=== PATIENT | female | born 1975 | race Caucasian/White ===

== ENCOUNTER 2020-12-01 08:43 | Emergency (ER) | payer SELFPAY ==
[~2020-12-01] VITALS: Ht 162.6 cm; Wt 77.0 kg
[2020-12-01 08:56] VITALS: BP 140/88
[2020-12-01] MEDS ORDERED: ACETAMINOPHEN 325MG TABLET PO ONE (09:15)
[2020-12-01] MEDS ORDERED: TOPUD PO (09:59)
== END 2020-12-01 10:54 | disposition home or self-care (01) ==
LOC: ER 08:43
DX: M25.512 Pain in left shoulder (principal)
CPT/HCPCS: 71045; 73060; 81025; 93005; 99284